=== PATIENT | male | born 1975 | race Caucasian/White ===

== ENCOUNTER → 2017-07-22 | Outpatient (CLI) | payer OTHER ==
[~2017-07-22] MED LIST: RANI15SY PO
--- NOTE | 2017-07-22 16:18 | KCIC ---
AP upright and supine views of the abdomen 07/22/2017 CLINICAL INDICATION: Generalized abdominal pain. COMPARISON: None. FINDINGS: Right lower quadrant surgical clips. There is a nonobstructive bowel gas pattern with a moderate amount of retained stool in the large bowel most prominent in the ascending colon. No pneumoperitoneum or portal venous gas. IMPRESSION: Moderate retained colonic stool which may contribute to constipation with no radiographic evidence of bowel obstruction. Electronically signed by: Carlito Gamble MD (07/22/2017 4:15 PM) [id number]
== END | disposition home or self-care (01) ==
LOC: KCIC 14:22
PROVIDERS: ATTEND Physician Assistant Medical
DX: K59.00 Constipation, unspecified (principal)
CPT/HCPCS: 74020

== ENCOUNTER → 2021-12-29 | Outpatient (CLI) | payer OTHER ==
--- NOTE | 2021-12-29 08:47 | KCIC ---
CT for coronary artery calcium scoring, without IV contrast, 12/29/2021 8:43 AM INDICATION: Reason: Cardiovascular screening. / Spl. Instructions: / History: Technique: Noncontrast CT images through the coronary arteries was performed . Findings: No significant noncardiac findings are identified. Visual inspection of the coronary arteries: Demonstrates no discernible calcified plaque The computer-generated calcium scoring utilizing AJ-130 criteria are as follows: Left Main Artery: 0. Left Anterior Descending Artery: 0. Left Circumflex Artery: 0. Right Coronary Artery: 0. The total calcium score is 0. Impression: Your total calcium score is 0.No plaque is present. The chance of significant heart disease is less than 5%, and corresponds to a very low risk for a myocardial infarction. Table: 0: No plaque is present. The chance of significant heart disease is less than 5%, and corresponds to a very low risk for a myocardial infarction. 1-10: A small amount of plaque is present. The chance of significant heart disease is less than 10%, and corresponds to a low risk for a myocardial infarction. 11-100: Plaque is present. This correlates with mild heart disease and a moderate risk for a myocardi al infarction. 101-400: A moderate amount of plaque is present. This correlates with heart disease, and a moderate t o high risk for a myocardial infarction. Over 400: A large amount of plaque is present. This correlates with a greater than 90% chance of a h igh grade stenosis. The risk for myocardial infarction is high. Electronically signed by: Paul Flores MD (12/29/2021 8:44 AM) [id number]
== END ==
LOC: KCIC CT 08:12
PROVIDERS: ATTEND Physician Assistant Medical
DX: Z13.6 Encounter for screening for cardiovascular disorders (principal)
CPT/HCPCS: 75571